=== PATIENT | male | born 1940 | race Caucasian/White ===

== ENCOUNTER → 2021-05-07 | Outpatient (CLI) | payer MEDICARE ==
--- NOTE | 2021-05-07 11:56 | RAD ---
XR ELBOW COMPLETE_LEFT 3+VIEWS History: Reason: LEFT ELBOW PAIN AFTER FALL YESTERDAY 05/06/21 / Spl. Instructions: / History: Technique: 3 views left elbow. Comparison: None. Findings: Acute nondisplaced fracture of olecranon enthesophyte. There is adjacent soft tissue swelling. No elb ow joint effusion. Vascular calcifications. Impression: 1. Acute nondisplaced fracture of the olecranon enthesophyte. 2. Posterior elbow soft tissue swelling. Electronically signed by: Kristopher Elmore DO (05/07/2021 11:54 AM) [id number]
== END ==
LOC: PMG 11:10
PROVIDERS: ATTEND Nurse Practitioner Family
DX: S52.025A Nondisplaced fracture of olecranon process without intraarticular extension of left ulna, initial encounter for closed fracture (principal); M79.89 Other specified soft tissue disorders; W19.XXXA Unspecified fall, initial encounter; Y93.89 Activity, other specified; Y92.89 Other specified places as the place of occurrence of the external cause; Y99.8 Other external cause status
CPT/HCPCS: 73080